=== PATIENT | male | born 1965 | race Caucasian/White ===

== ENCOUNTER 2025-08-10 17:04 | Inpatient (IN) | payer OTHER, SELFPAY ==
[2025-08-10] VITALS (8 sets, daily range): BP systolic 110–169; BP diastolic 79–101; BMI 29.6; BMI 28.9
[2025-08-10 15:22] LABS: Hematocrit 46.6 % (39.0-52.0); Hemoglobin 15.6 g/dL (13.0-18.0); Mean Corp Hgb Conc. 33.5 g/dL (33.0-37.0); Mean Corpuscular Volume 94.3 fL (80.0-94.0); Nucleated Red Blood Cells % 0 % (-); Platelet Count 365 10^3/uL (130-400); Red Cell Dist. Width 12.4 % (11.5-14.5)
[2025-08-10 15:44] LABS: ALT (SGPT) 37 U/L (0-50); AST (SGOT) 37 U/L (17-59); Albumin 5.0 g/dl (3.5-5.0); Alkaline Phosphatase 44 U/L (38-126); Blood Urea Nitrogen 17 mg/dl (9-20); Calcium 10.0 mg/dl (8.4-10.2); Carbon Dioxide 29 mmol/L (22-30); Chloride 99 mmol/L (98-107); Glucose 122 mg/dl (70-99); Potassium 5.0 mmol/L (3.5-5.1); Sodium 135 mmol/L (135-145); Total Protein 7.9 g/dl (6.3-8.2); eGFR > 60.00
[2025-08-10 15:47] LABS: Troponin I 0.345 ng/ml
--- NOTE | 2025-08-10 16:22 | ED.GENMED ---
History of Present Illness
General
Chief Complaint: Chest Pain
Time Seen by Provider: 08/10/25 16:05
History of Present Illness
History of Present Illness:
59-year-old male with history of hypertension and chronic low back pain presents to the emergency department for evaluation of intermittent chest pain for the past 5 days. He states he has typically experience pain while walking his dog but has
been able to perform low intensity cardio exercises on a recumbent bicycle without reproduction of pain. Today was the first day that he developed pain at rest however it is currently resolved. No history of similar pain. Radiates to the left
arm. No radiation to the back. Denies shortness of breath, fever, chills, sweats, nausea, vomiting, or diarrhea. Denies history of hyperlipidemia, diabetes, or tobacco use. Does have strong family history of coronary disease per patient. Has
taken 'at least seven' baby aspirins today
Past History
Past History
ED Past Medical History: HTN, Seizures, Other (Spinal stenosis ) and Other (Kidney stones)
ED Past Surgical History: Other (Nasal surgery)
Social History
Tobacco: Non-smoker
Alcohol: None
Drug: Marijuana
Personal: Single
Living: with family
Employment: Disabled
Review of Systems
Review of Systems
Allergies reviewed?: Yes
All Other Systems: ROS reviewed and negative except as documented in HPI and ROS
Phy Exam
Physical Exam
Physical Exam:
GEN: Well appearing, NAD, WDWN
HEENT: Oral mucosa moist, no scleral icterus
Cardiac: Regular rate and rhythm, no murmurs
Lung: No respiratory distress, no tachypnea, lungs clear to auscultation bilaterally
MSK: No gross deformity or injuries
Skin: Good color, no pallor or jaundice, no rashes
Neuro: AO x3, moves all extremities freely
Psych: Calm, cooperative
Scores
Heart Score for Chest Pain Patients
STEMI patient?: No
History: Moderately Suspicious
ECG: Normal
Age: >45 - <65 years
Risk Factors: 1 or 2 Risk Factors
Troponin: >/= 3 x Normal Limit
Heart Score for Chest Pain Patients: 5
Heart Score Risk: 20.3% MACE over next 6 weeks
Course
Orders/Labs/Results
Orders:
Orders
08/10/25 14:42
EKG [Electrocardiogram (*1)] Urgent
Reason for Study: Chest Pain
EKG- Treatment ONCE
08/10/25 15:10
Complete Blood Count/With Diff Urgent
Comprehensive Metabolic Panel Urgent
Troponin I Urgent
08/10/25 16:21
Heparin 4,000 units IV NOW STA
Nursing to Place Non Medication Order As Directed
Physician Order: PTT 6 hours after initial start of Heparin infusion
CR Chest - 2 Views Urgent
Comment:
Reason For Exam: chest pain
08/10/25 16:30
Heparin 43310 Units/250 ml 25,000 units in 250 ml IV PER PROTOCOL
Weight to be used for heparin protocol in kilograms (kg):: 107.6
Protocol:: Cardiac Tx/Acute Coronary
PTT Goal Range to be used:: PTT 73 to 111 seconds
Order type:: Initial
INITIAL Infusion Dose (UNITS/KG/hr) & then follow protocol:: 15 units/kg/hr
Infusion Dose in UNITS/hr & then follow protocol (UNITS/hr):: 1,500
INFUSION RATE in mL/hr & then follow protocol (mL/hr):: 15
PTT less than or equal to 64 seconds:: Increase rate by 200 units/hr (+ 2 mL/hr)
PTT 64.1 to 72.9 seconds:: Increase rate by 100 units/hr (+ 1 mL/hr)
PTT 73 to 111 seconds:: Target Range. No change in rate.
PTT 111.1 to 130.9 seconds:: Decrease rate by 100 units/hr (- 1 mL/hr)
PTT 131 to 199.9 seconds:: HOLD for 1 hr. Then decrease rate by 200 units/hr (- 2 mL/hr)
PTT greater than or equal to 200 seconds:: HOLD for 2 hrs & Notify Provider. Then decrease by 200 units/hr (-
2 mL/hr)
Lab follow-up:: Each change, PTT q6h until 2 consecutive are therapeutic. Then PTT
daily.
08/10/25 16:33
PTT Urgent
Prothrombin Time Urgent
08/10/25 16:34
Heparin 18413 Units/250 ml 25,000 units in 250 ml .ROUTE .STK-MED
08/10/25 16:37
Admit/Transfer Patient As Directed
Co-Sign Provider:
Level of Care: Inpatient admission
Assign to:: IVU
Physician / Group: shea
Diagnosis: nstemi
Reason for Hospitalization: nstemi
Expected length of stay greater than two midnights?: Yes
ELOS- Estimated Length of Stay in days: 2
I certify the patient meets the requirements for IP care: Yes
Code Status As Directed
Resuscitation Status: Full Code
PRN Pain Medication Management As Directed
May give lesser potent ordered pain med per pt: Yes
preference::
Protocol:: Medication orders for pain may be administered in a
manner that supports deferring to patient preference
when the pt is:
- Requesting an ordered lesser potent pain medication.
Least to most potent pain medications are defined
as: acetaminophen < NSAID < tramadol < opioids
(morphine, oxycodone, hydromorphone).
- Requesting a lesser dose of the same medication IF
ORDERED.
- Requesting a less intrusive route of administration
if both routes are prescribed by the provider (PO <
IV).
08/10/25 22:46
PTT Urgent
Abnormal Lab Results
08/10/25
15:10
MCV 94.3 H fL
(80.0-94.0)
MCH 31.6 H pg
(27.0-31.0)
Absolute Monos (auto) 0.9 H 10^3/uL
(0.1-0.6)
Glucose 122 H mg/dl
(70-99)
Total Bilirubin 1.4 H mg/dl
(0.2-1.3)
Troponin I 0.345 H* ng/ml
08/10/25 15:10
08/10/25 15:10
Vital Signs
Initial and Last Documented VS:
Initial Vital Signs
Temp Pulse Resp Pulse Ox
98.5 F 96 18 98
08/10/25 14:57 08/10/25 14:57 08/10/25 14:57 08/10/25 14:57
Last Documented Vital Signs
Temp Pulse Resp BP Pulse Ox
98.5 F 78 17 148/92 99
08/10/25 14:57 08/10/25 16:30 08/10/25 16:58 08/10/25 16:11 08/10/25 16:57
MDM/Problems Addressed
MDM/Problems Addressed:
59-year-old male present, he does have exertional component however today developed rest pain. Stable currently in the ED with no active symptoms. EKG is nonischemic however troponin is significantly elevated. Highly likely that this represents
NSTEMI/ACS, patient has adequately dosed himself with baby aspirin today thus we will start on heparin and monitor for further bouts of pain, will admit to the hospitalist with cardiology consulting
Comment
Comment:
EKG independently interpreted by me shows normal sinus rhythm with no significant ST changes concerning for ischemia
CXR independently interpreted by me is negative for acute disease
*Pulse Oximetry
SaO2: 98
Patient hypoxic: no
*Critical Care Note
Total Time (30-74mins, 75-104mins- exclusive of procedures): 30 minutes
comment:
Critical care time: 30 minutes
Critical care time was exclusive of: Separately billable procedures, treating other patients, and teaching time
Critical care was necessary to treat or prevent imminent or life-threatening deterioration of the following conditions: NSTEMI
Critical care time spent personally by me on the following activities:
[x] Review of old charts
[x] Obtaining history from patient or surrogate
[x] Ordering and review of the laboratory studies
[x] Ordering and review of radiographic studies
[x] Ordering and performing treatments and interventions
[x] Patient patient's response to treatment
[x] Development of treatment plan with patient or surrogate
ED Attending Note
-
Portions of this chart may have been created with voice recognition software.� Occasional wrong word or��sound alike� substitutions may have occurred due to the inherent limitations of voice recognition software.
Discharge Plan
Departure
Patient Disposition: Admit
Date of Disposition: 08/10/25
Time of Disposition: 16:31
Admit to: IVU
Presentation/result/management discussed w/ accepting MD/DO: Hospitalist
Discharge Problem:
Acute non-ST elevation myocardial infarction (NSTEMI)
Interventions
Interventions:
*Risk Screen - Suicide Last Done: 08/10/25 15:00
*General Assessment Last Done: 08/10/25 16:32
*Neglect/Abuse Screening Last Done: 08/10/25 15:00
*ED- Fall Risk Assessment Last Done: 08/10/25 16:32
*ED COVID-19 Vaccine History Last Done: 08/10/25 16:32
*ED Influenza Vaccine History Last Done: 08/10/25 16:32
ED- Cardiac Assessment Last Done: 08/10/25 16:57
--- NOTE | 2025-08-10 16:40 | HPS.HSE ---
Family Physician
-
Family Physician:
Chief Complaint
-
chest pain
History of Present Illness
59-year-old male past medical history of hypertension, chronic lower back pain, spinal stenosis, kidney stones, remote history of seizures, presenting for intermittent chest pain for the past 5 days. Pain is described as pressure and radiates to
the left arm. He states that he typically experiences pain with walking his dog. Today is the first that he developed pain at rest currently denies any pain. No prior history of similar pain. Denies shortness of breath, fevers or chills, sweats,
nausea vomiting or diarrhea.
He takes 325 mg of aspirin every day which he has done for years for prophylaxis. No prior history of heart disease. He does not see a stripper cutter machine
He has strong family history of heart disease. His mother had NV in her 60s.
He does not smoke or drink alcohol.
Medical History
Past Medical History
Past Medical History: Reports Other (hypertension, chronic lower back pain, spinal stenosis, kidney stones, remote history of seizures)
Past Surgical History: Reports Other (back surgery )
Social History
Tobacco: Non-smoker
Alcohol: None
Drug: None
Family History
Family History: Not pertinent
Allergies / Home Medications
Allergies reflects when Allergies were last updated in [employer].
Home Medications with original date entered in [employer]
Allergy/Medication List:
Allergies
Allergy/AdvReac Type Severity Reaction Status Date / Time
NKA - No Known Allergies Allergy Unknown Uncoded 08/10/25 14:58
Home Medications
lisinopril 10 mg tablet 10 mg PO DAILY #20 tabs 03/23/11
levofloxacin 500 mg tablet 500 mg PO DAILY #10 tabs 12/01/11
metronidazole 500 mg tablet 500 mg PO TID #30 tabs 12/01/11
naproxen sodium 220 mg capsule (Aleve) 2 cap PO ONCE 12/01/11
hydrocodone 5 mg-acetaminophen 325 mg tablet (Liberal) 1 ea PO Q4HPRN PRN pain #12 tabs 09/15/18
Review of Systems
-
History Source: Patient
A 12 point ROS was completed and negative except as noted: Yes
Constitutional: Reports No Symptoms
EENT: Reports No Symptoms
Respiratory: Reports No Symptoms
Cardiac: Reports See HPI
Abdomen/GI: Reports No Symptoms
: Reports No Symptoms
Musculoskeletal: Reports No Symptoms
Skin: Reports No Symptoms
Neurological: Reports No Symptoms
Endocrine: Reports No Symptoms
Hematologic/Lymphatic: Reports No Symptoms
Psych: Reports No Symptoms
Physical Exam
Vital Signs
Vital Signs
Temp Pulse Resp BP Pulse Ox
98.5 F 78 18 148/92 97
08/10/25 14:57 08/10/25 16:30 08/10/25 16:30 08/10/25 16:11 08/10/25 16:30
Physical Exam
General: Well Developed, Well Nourished and No Apparent Distress
HEENT: NormoCephalic, Moist mucous membranes and Atraumatic
Respiratory: Clear
Cardiac: S1/S2 and Regular Rhythm; No Murmur or Rub
GI: Soft, Non Tender, Non Distended and Normal Bowel Sounds; No Organomegaly
Rectal: Deferred by Provider
Musculoskeletal: No Clubbing, No Cyanosis and No Edema
Skin: No Rash
Neuro: Nonfocal/grossly intact
Laboratory Results
-
08/10/25 15:10
08/10/25 15:10
Laboratory Results
Total Bilirubin 1.4 mg/dl (0.2-1.3) H 08/10/25 15:10
AST 37 U/L (17-59) 08/10/25 15:10
ALT 37 U/L (0-50) 08/10/25 15:10
Alkaline Phosphatase 44 U/L (38-126) 08/10/25 15:10
Troponin I 0.345 ng/ml H* 08/10/25 15:10
Data Reviewed
-
Lab Data: Labs Reviewed by me
Old Records: Reviewed
Impression/Plan
-
IMPRESSION:
PLAN:
# NSTEMI
- Troponin of 0.345
- EKG shows nonspecific ST-T wave changes
- Trend troponins
- Continue aspirin
- Heparin drip
- Check A1c and lipid panel
- Check echo
-N.p.o. postmidnight
- Cardiology consulted
Essential hypertension
- Continue lisinopril
Chronic lower back pain/spinal stenosis
- Continue Percocet
History of nephrolithiasis
History of seizures
- Not on seizure medication, no seizure in several decades
Full code
DVT prophylaxis�heparin drip
N.p.o. postmidnight
[2025-08-10] MEDS: HEPARIN 4000 UNITS IV (16:44)
[2025-08-10] MEDS: HEPARIN 25000 UNITS/250 ML IV (16:46)
[2025-08-10 16:49] LABS: INR 0.96; PT 13.0 Sec (11.4-14.6)
[2025-08-10 16:50] LABS: APTT 28.9 Sec (23.4-35.0)
--- NOTE | 2025-08-10 19:25 | PTCARENOTE ---
~[id number]: Received patient from ER via stretcher. Pt AOx4, NSR 60s-100s on tele, SBP 130s, RA. Patient denies CP at this time. Heparin gtt infusing @1500. Patient independent in room. NPO per order. Patient oriented to unit and call [facility] system.
Admission charting completed. All needs met at this time, call [facility] within reach. Handoff report given to nightshift RN.
[2025-08-10 22:05] LABS: HDL Cholesterol 52 mg/dl; LDL Cholesterol, Calculated 157 mg/dl; Very Low Density Lipoprotein 78 mg/dl (0-30)
[2025-08-10 23:03] LABS: APTT 64.5 Sec (23.4-35.0)
[2025-08-10 23:19] LABS: Troponin I 2.450 ng/ml
[2025-08-10] MEDS: NITROSTAT (SUBLINGUAL) 0.4 MG SL ×2 (23:31→23:37)
[2025-08-11] VITALS (13 sets, daily range): BP systolic 114–147; BP diastolic 75–98
--- NOTE | 2025-08-11 00:17 | PTCARENOTE ---
Received patient at change of shift. SR on the monitor, HR in the 60s. Heparin running as per protocol, see documentation. NPO at midnight.
2330: Pt complained of 5/10 chest pain, 'dull and crampy' center and L side of chest. 135/79. MARKETING PROGRAM MANAGER Rin S made aware. 2L nasal cannula. EKG obtained. SL Nitro x2. No more chest pain. BP stable.
[2025-08-11 05:48] LABS: Hematocrit 42.5 % (39.0-52.0); Hemoglobin 14.4 g/dL (13.0-18.0); Mean Corp Hgb Conc. 33.9 g/dL (33.0-37.0); Mean Corpuscular Volume 94.0 fL (80.0-94.0); Nucleated Red Blood Cells % 0 % (-); Platelet Count 307 10^3/uL (130-400); Red Cell Dist. Width 12.4 % (11.5-14.5)
[2025-08-11 05:55] LABS: APTT 62.3 Sec (23.4-35.0)
[2025-08-11 06:07] LABS: ALT (SGPT) 31 U/L (0-50); AST (SGOT) 35 U/L (17-59); Albumin 4.2 g/dl (3.5-5.0); Alkaline Phosphatase 53 U/L (38-126); Blood Urea Nitrogen 15 mg/dl (9-20); Calcium 9.6 mg/dl (8.4-10.2); Carbon Dioxide 27 mmol/L (22-30); Chloride 105 mmol/L (98-107); Estimated Creatinine Clearance 120 ml/min; Glucose 121 mg/dl (70-99); Potassium 4.6 mmol/L (3.5-5.1); Sodium 135 mmol/L (135-145); Total Protein 6.6 g/dl (6.3-8.2); eGFR > 60.00
[2025-08-11 06:21] LABS: Troponin I 1.730 ng/ml
[2025-08-11] MEDS: NITROSTAT (SUBLINGUAL) 0.4 MG SL (06:43)
[2025-08-11] MEDS: HEPARIN 25000 UNITS/250 ML IV (06:46)
[2025-08-11] MEDS: ROXICODONE 10 MG PO ×2 (06:50→13:44)
--- NOTE | 2025-08-11 07:17 | PTCARENOTE ---
Patient rang call [facility] at 06:40 complaining of 4/10 chest pain, dull, and not radiating anywhere. BP 121/84. SL Nitro x1. EKG obtained. Chest pain resolved. BP 135/86.
--- NOTE | 2025-08-11 08:45 | CON.CAR ---
Addendum entered and electronically signed by Rachel Mccrary MD 08/11/25 12:57:
I saw and examined the patient.
The Dry Kiln Operator's note was reviewed and I agree with the note.
Comment: Jose C is a 59-year-old gentleman with past medical history of hypertension, chronic back pain on chronic Percocet, hyperlipidemia, family history of premature coronary artery disease, non-smoker who presents after episodes of recurrent
exertional chest discomfort while walking his dog over the last 5 days. He is pretty active at baseline doing 30 minutes of cardio every day which would not redevelop the same discomfort but he would appreciate the pain come on every time he walked
his dog. Troponin I peaked at 2.45. Overnight he required sublingual nitroglycerin twice due to recurrent symptoms at rest. No associated symptoms like shortness of breath, nausea vomiting, diaphoresis. He generally takes the 25 mg of aspirin
every day along with lisinopril. He does note being under a lot of stress recently.
Vital signs and lab work reviewed. On exam patient is well-appearing, no acute distress, awake, alert and oriented x 3, regular rate, normal S1 and S2, no murmurs, rubs or gallops, lungs are clear to auscultation bilaterally, abdomen is soft,
nontender, nondistended with active bowel sounds, warm extremities without significant edema.
Recommendations:
1. Given rest symptoms needing 2 sublingual nitroglycerin overnight with troponin I of 2.45, extensive discussion was had with the patient in regards to risk and benefits of coronary angiogram to rule out obstructive CAD as potential etiology.
Given multiple cardiovascular cardiovascular risk factors, I think coronary angiogram in the setting of an NSTEMI is the best option. Patient expresses understanding of our discussion and is agreeable to proceeding.
2. Continue management of ACS with daily baby aspirin, high intensity statin, IV unfractionated heparin and low-dose beta-tracey.
3. Plan for echocardiogram to assess biventricular function and rule out any significant valvular disease.
4. Aggressive management of secondary cardiovascular risk factors.
5. Further recommendations based on findings of the heart catheterization.
Rachel Mccrary MD, FACC, [facility]
Modifier 25
Original Note:
Consultation
Consultation Request
Date/Time Consultation Performed: 08/11/25
Requesting Provider: Dr. Nixon
Performing Provider: Irish Ibarra PA-C for Dr. Mccrary
Reason for Consultation: NSTEMI
Medical History
-
Chief Complaint: CP
History of Present Illness:
Patient is a 59-year-old male with past medical history of hypertension, chronic back pain with opioid dependence who presents to [facility] due to complaints of chest discomfort and tightness. He states that normally he is active, walking
his dog and riding a incumbent bike. He reports over the last week with walking his dog he noted onset of left-sided chest discomfort with left arm pain and axillary pain which relieved with rest. Then yesterday he developed resting pain causing
him to come to the ER for evaluation. Overnight he required sublingual nitro twice due to recurrence of pain. He denies associated shortness of breath. He does take 324 mg of aspirin daily. He reports a family history of coronary disease in his
mother. He states he has been under a lot of stress recently. He reports he had a physical with his primary care physician in May of this year and was given a clean bill of health.
PMH:
HTN
Chronic back pain with opioid dependence
FH of CAD
Past Medical History
Past Medical History: Other (in HPI)
Social History
Tobacco: Non-Smoker
Alcohol: None
Drug: None
Living: Alone
Employment: Disabled
Family History
Family History: CAD
Allergies / Home Medications
Allergy/AdvReac Type Severity Reaction Status Date / Time
No Known Allergies Allergy Unverified 08/10/25 18:23
�Medication �Instructions �Recorded �Confirmed �Type
aspirin 81 mg tablet,delayed 162 mg PO DAILYPRN PRN chest pains 08/10/25 08/10/25 History
release
aspirin 81 mg tablet,delayed 324 mg PO DAILY Heart 08/10/25 08/10/25 History
release Disease/Condition
lisinopril 20 mg tablet 20 mg PO DAILY Blood Pressure 08/10/25 08/10/25 History
omega-3 fatty acids-fish oil 684 1 cap PO DAILY Supplement 08/10/25 08/10/25 History
mg-1,200 mg capsule,delayed release
oxycodone-acetaminophen 10 mg-325 2 tab PO DAILY severe pain 08/10/25 08/10/25 History
mg tablet
oxycodone-acetaminophen 10 mg-325 1 tab PO HS severe pain 08/10/25 08/10/25 History
mg tablet (Percocet)
therapeutic multivitamin 1 tab PO DAILY Supplement 08/10/25 08/10/25 History
Review of Systems
-
History Source: Patient
All other systems: Negative unless noted
Physical Exam
Vital Signs
Temp Pulse Resp BP Pulse Ox
98.3 F 61 20 126/87 97
08/11/25 08:06 08/11/25 08:00 08/11/25 08:06 08/11/25 07:50 08/11/25 08:06
Lab Results
08/11/25 05:21
08/11/25 05:21
Troponin I 1.730 ng/ml H* D 08/11/25 05:21
Physical Exam
General: No Apparent Distress and Comfortable
HEENT: Normocephalic, Anicteric and Moist Mucous Membranes
Respiratory: Clear and Non Labored Respirations
Cardiac: S1/S2 and Regular Rhythm
GI: Soft, Non Tender, Non Distended and Normal Bowel Sounds
Musculoskeletal: No Clubbing, No Cyanosis and No Edema
Skin: Warm and Dry
Neuro: AO x 3
Impression / Plan
-
Primary biological sciences instructor: None prior to admission
Assessment:
Presentation with chest pain
NSTEMI
Hyperlipidemia/hypertriglyceridemia
HTN
Chronic back pain with opioid dependence
FH of CAD
ECHO 08/11/25: pending
Plan:
- Patient presents with chest tightness and left arm pain over the last week with exertion, however yesterday developed pain with rest.
- Ruled in for NSTEMI with peak troponin of 2.4 and subsequently trending down
- Overnight required sublingual nitro on 2 occasions for recurrence of pain
- Presently pain-free on IV heparin, continue
- EKGs remain sinus rhythm without acute ischemic change
- Chest x-ray reviewed, without acute abnormalities noted
- Echo pending
- He has been continued on aspirin 325 mg daily which he was taking as outpatient. If he requires stenting, would reduce dose to 81 mg daily
- LDL 157 with triglycerides of 390. Start high intensity statin therapy
- Add Toprol 12.5 mg daily
- Hemoglobin A1c pending
- Reviewed cardiac catheterization procedure with patient and he is agreeable to proceed. NPO. Discussed with Supervisor Sewing Room/interventional cardiology
- Discussed with nursing
Data Reviewed
-
EKG: Tracing Personally Visualized and interpreted
Radiology: Report Reviewed by me
Labs: Labs Reviewed by me
Old Records: Reviewed
[2025-08-11] MEDS: ASPIRIN 325 MG PO (08:49)
[2025-08-11] MEDS: TOPROL XL 12.5 MG PO (08:57)
--- NOTE | 2025-08-11 09:29 | CM ---
Reviewed chart. Met with Mr. Rawls to review discharge plans. He states prior to admission he rents a room in a two story home with one step to enter. He states his room is on the first floor. He states prior to admission he was independent with
ambulation and adls. He states he does not have any DME in the home. He states he has a prescription plan and uses [facility]. Medical work-up in progress. The discharge plan is to return home when medically stable.
[2025-08-11 09:39] LABS: Glycohemoglobin (HgbA1c) 5.7 % (4.0-5.9)
--- NOTE | 2025-08-11 11:50 | ITS.CL.CATH ---
Sourcing Manager - Catheterization
Cardiac Catheterization
Procedure Report:
LEFT HEART CATHETERIZATION
Date of Procedure: August 11, 2025
Referring: Rachel Mccrary MD, [facility], [facility]
PROCEDURES:
1. Left heart catheterization, coronary angiogram.
2. Moderate sedation.
INDICATION: Concern for NSTEMI
ACCESS: Right radial artery, 6Fr. sheath, under US guidance.
HEMODYNAMICS : (mmHg)
AO (s/d) : 135/89
LVEDP : 8
No significant gradient across the aortic valve to suggest aortic stenosis.
CORONARY FINDINGS
Dominance: Right
Left Main Trunk (LMT): Large caliber vessel that gives rise to the LAD and LCx branches and is free of angiographic disease.
Left Anterior Descending Artery (LAD): Large caliber vessel that gives off 2 small caliber major diagonal branches as it courses along the anterior inter-ventricular groove before wrapping around the cardiac apex. There is mild diffuse
atherosclerotic plaque. D1 is a very small caliber vessel with eccentric 50% ostial stenosis.
Left Circumflex Artery (LCx): Large caliber vessel that gives off 2 major obtuse marginal (OM) branches as it courses along the atrio-ventricular (AV) groove. OM 2 is a medium caliber vessel with 30 to 40% stenosis in the proximal portion.
Otherwise there is mild diffuse atherosclerotic plaque.
Right Coronary Artery (RCA): Large caliber dominant vessel that gives rise to the posterior descending artery (RPDA) and postero-lateral ventricular (RPLV) branches distally. The RCA and its branches are free of angiographic disease.
SEDATION: 27 minutes of procedural sedation was utilized. IV Midazolam and IV Fentanyl were administered. An independent biomedical engineering professor was present to assist with and help manage the patient's level of consciousness and physiologic status.
RADIATION SUMMARY: Fluoro Time (min): 1.8, Dose (mGy): 265.74, DAP (Gy.cm2) : 18.2
Closure Device: There were no immediate intra-procedural complications. The sheath was pulled in the labor employment associate and a vascular-band applied to the right wrist for radial artery hemostasis using the patent hemostasis technique.
CONCLUSIONS
1. No obstructive coronary artery disease.
2. LVEDP of 8 mmHg.
RECOMMENDATIONS
1. Wean radial band per protocol. Monitor right hand perfusion and for bleeding from the radial site following removal of the vascular-band following trans-radial access.
2. Continue aggressive medical therapy and risk factor modification for secondary CAD prevention.
3. Hydrate with normal saline to mitigate the risk of contrast-induced acute kidney injury.
Rachel Mccrary MD, FACC, [facility] [place], [id number]
--- NOTE | 2025-08-11 13:52 | W.PN.HOSP.TC ---
Addendum entered and electronically signed by Florencio Nixon MD 08/12/25 17:21:
NSTEMI
Addendum entered and electronically signed by Florencio Nixon MD 08/12/25 15:52:
[id number]
Addendum entered and electronically signed by Florencio Nixon MD 08/11/25 14:18:
ASA, Statin
F/u cbc and bmp in 1 week with pcp
Fu cards outpt
More than 30 minutes spent in discharge including
Final examination of the patient
Summarizing hospital stay
Instructions for continuing care to all relevant caregivers
Preparation of discharge records, prescriptions, and referral forms
Total time spent (in minutes): 36
Original Note:
Today's Communication/Plan
-
Secondary cardiac prevention
Statin, aspirin
Assessment / Plan
Assessment / Plan
General: Well Developed, Well Nourished and No Apparent Distress
HEENT: NormoCephalic, Moist mucous membranes and Atraumatic
Respiratory: Clear
Cardiac: S1/S2 and Regular Rhythm; No Murmur or Rub
GI: Soft, Non Tender, Non Distended and Normal Bowel Sounds; No Organomegaly
Rectal: Deferred by Provider
Musculoskeletal: No Clubbing, No Cyanosis and No Edema
Skin: No Rash
Neuro: Nonfocal/grossly intact
# NSTEMI
-[facility] nonobstructive cardiac disease
-likely Takotsubo's s/p troponin at 2.45
� Troponin peak 2.45
� Secondary CAD prevention
�LDL 157, A1c 5.7
� Start statin, continue aspirin
- Check echo�no regional wall motion abnormality
- Cardiology consulted
Essential hypertension
- Continue lisinopril
Chronic lower back pain/spinal stenosis
- Continue Percocet
History of nephrolithiasis
History of seizures
- Not on seizure medication, no seizure in several decades
Full code
DVT prophylaxis�HSQ
Anticipated Discharge: Within 24 hours
Subjective/Interval History
-
Date of Service: August 11, 2025
No acute events overnight
Objective Data
-
Labs:
Laboratory Results
08/11/25 08/11/25
05:21 12:15
WBC 9.4
Hgb 14.4
Hct 42.5
Plt Count 307
APTT 62.3 H Pending
Sodium 135
Potassium 4.6
Chloride 105
Carbon Dioxide 27
BUN 15
Creatinine 0.8
Glucose 121 H
Calcium 9.6
Total Bilirubin 1.8 H
AST 35
ALT 31
Alkaline Phosphatase 53
Vital Signs:
Vital Signs
Temp Pulse Resp BP Pulse Ox
98.7 F 91 16 147/96 97
08/11/25 11:41 08/11/25 13:45 08/11/25 11:41 08/11/25 13:00 08/11/25 12:00
Review of Systems
-
History Source: Patient
All other systems: Not reviewed unless documented
Data Reviewed
-
Diagnostic Radiology: Report Reviewed by me
Labs: Labs Reviewed by me
--- NOTE | 2025-08-11 14:17 | W.DS.TRANS ---
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
-
Discharge Instructions:
Discharge Diagnosis/Procedures Cardiac catheterization
NTEMI
Diet Low Cholesterol,Low Fat
Driving Restrictions No driving for 24 hours
Blood Work cbc and cmp in 1 week with pcp
Instructions:
Stand-Alone Forms: DC Instructions- Cath/EP Lab
Changes to Home Medications: Yes
Discharge Medications:
DC Medications w/original date entered in [employer]
lisinopril 20 mg tablet 20 mg PO DAILY Blood Pressure 08/10/25
omega-3 fatty acids-fish oil 684 mg-1,200 mg capsule,delayed release 1 cap PO DAILY Supplement 08/10/25
oxycodone-acetaminophen 10 mg-325 mg tablet 2 tab PO DAILY severe pain 08/10/25
oxycodone-acetaminophen 10 mg-325 mg tablet (Percocet) 1 tab PO HS severe pain 08/10/25
therapeutic multivitamin 1 tab PO DAILY Supplement 08/10/25
aspirin 81 mg chewable tablet 81 mg PO DAILY 30 days #30 tabs 08/11/25
atorvastatin 80 mg tablet 80 mg PO QPM 30 days #30 tabs 08/11/25
Home Medication Changes
aspirin 81 mg chewable tablet 81 mg PO DAILY 30 days #30 tabs 08/11/25
atorvastatin 80 mg tablet 80 mg PO QPM 30 days #30 tabs 08/11/25
Pending Results: No
--- NOTE | 2025-08-12 11:16 | PN.CDI ---
CDI
- -
CDI:
Physician Documentation Request
Admit Date: 08/10/25 17:04
Dear Doctor Tiffani,
Patient presented to ED for evaluation of intermittent chest pain.
Patient went for left heart cath on 08/10 'indication: concern for NSTEMI. Conclusion: 1. No obstructive coronary artery disease. 1. LVEDP of 8 mmHg. '
Hospitalist progress note states ' NSTEMI--[facility] nonobstructive cardiac disease -likely Takotsubo's s/p troponin at 2.45'
Please clarify the following regarding the documented myocardial infarction:
Type of SC
NSTEMI
Type II (due to demand ischemia)
Other
Use of terms such as suspected, likely, concern for, or probable (associated with a specific diagnosis that is being evaluated, monitored, or treated as if it exists) are acceptable and can be coded in the inpatient setting, when documented at the
time of discharge.
Thank you,
Talia Barrios RN, BSN
CDI Specialist
tiger text
Please use your independent medical judgment in providing your response.
--- NOTE | 2025-08-12 12:25 | PN.CDI ---
CDI
- -
CDI:
Physician Documentation Request
Admit Date: 08/10/25 17:04
Dear Doctor Tiffani,
Patient presented to ED for evaluation of intermittent chest pain.
Patient went for left heart cath on 08/10 'indication: concern for NSTEMI. Conclusion: 1. No obstructive coronary artery disease. 1. LVEDP of 8 mmHg. '
Hospitalist progress note states ' NSTEMI--[facility] nonobstructive cardiac disease -likely Takotsubo's s/p troponin at 2.45'
Please clarify the following regarding the documented myocardial infarction:
Type of [place]
NSTEMI
Type II demand ischemia due to (please specify)
Takotsubo only
Other
Use of terms such as suspected, likely, concern for, or probable (associated with a specific diagnosis that is being evaluated, monitored, or treated as if it exists) are acceptable and can be coded in the inpatient setting, when documented at the
time of discharge.
Thank you,
Talia Barrios RN, BSN
CDI Specialist
tiger text
Please use your independent medical judgment in providing your response.
== END 2025-08-11 16:35 | disposition home or self-care (01) | DRG 281 ==
LOC: IVU 17:04
PROVIDERS: Emergency Medicine; Internal Medicine Interventional Cardiology; Physician Assistant; ADMITTING PHYSICIAN Hospitalist; ATTENDING PHYSICIAN Internal Medicine; CONSULT PHYSICIAN Internal Medicine Cardiovascular Disease; EMERGENCY PHYSICIAN Emergency Medicine; FAMILY PHYSICIAN Family Medicine
PROC: B2111ZZ Fluoroscopy of Multiple Coronary Arteries using Low Osmolar Contrast (ICD-10-PCS; 2025-08-11)
PROC: 4A023N7 Measurement of Cardiac Sampling and Pressure, Left Heart, Percutaneous Approach (ICD-10-PCS; 2025-08-11)
DX: I21.4 Non-ST elevation (NSTEMI) myocardial infarction (principal); F11.20 Opioid dependence, uncomplicated; I10 Essential (primary) hypertension; M48.00 Spinal stenosis, site unspecified; G89.29 Other chronic pain; I25.10 Atherosclerotic heart disease of native coronary artery without angina pectoris; E78.1 Pure hyperglyceridemia; Z79.82 Long term (current) use of aspirin; Z79.899 Other long term (current) drug therapy; Z82.49 Family history of ischemic heart disease and other diseases of the circulatory system
CPT/HCPCS: 71046; 80053; 80061; 83036; 84484; 85025; 85610; 85730; 93005; 93306; 93458; 99152; 99153; 99291; C1769; C1894; Q9967